=== PATIENT | female | born 1975 | race Hispanic/Latino ===

== ENCOUNTER 2019-11-24 22:53 | Emergency (ER) | payer BC ==
--- NOTE | 2019-11-24 23:43 | EDPHYS ---
Physician Documentation [facility] Name: Venice Bond Age: 44 yrs Sex: Female : 1975 Arrival Date: 11/24/2019 Time: 22:58 Bed 17 Private MD: ED Physician Babatunde Mott HPI: 11/23 23:18 This 44 yrs old Female presents to ER via Ambulatory with complaints of Sore pm1 Throat. 23:18 The patient presents with sore throat. The patient describes throat pain as raw, pm1 scratchy. Onset: The symptoms/episode began/occurred yesterday. Severity of symptoms: in the emergency department the symptoms are unchanged. Modifying factors: The symptoms are alleviated by nothing, the symptoms are aggravated by nothing. Associated signs and symptoms: Pertinent positives: increased thirst. Sensation of "decreased circulation to both feet". The patient has not experienced similar symptoms in the past. The patient has not recently seen a physician. Patient is concerned that she has symptoms of covid and would like to be tested. Historical: - Allergies: 23:17 No Known Allergies; sg - Home Meds: 23:17 None [Active]; sg - PMHx: 23:17 None; sg - PSHx: 23:17 None; sg - Immunization history:: Adult Immunizations up to date. - Social history:: Smoking status: Patient denies any tobacco usage or history of. ROS: 23:18 Constitutional: Negative for fever, chills, and weight loss, Eyes: Negative for injury, pm1 pain, redness, and discharge. 23:18 Neck: Negative for injury, pain, and swelling, Cardiovascular: Negative for chest pain, palpitations, and edema, Respiratory: Negative for shortness of breath, cough, wheezing, and pleuritic chest pain, Abdomen/GI: Negative for abdominal pain, nausea, vomiting, diarrhea, and constipation, Back: Negative for injury and pain, MS/Extremity: Negative for injury and deformity, Skin: Negative for injury, rash, and discoloration. 23:18 ENT: Positive for sore throat, Negative for drainage from ear(s), ear pain, dental pain, difficulty swallowing, difficulty handling secretions, hoarseness. 23:18 Neuro: Positive for tingling to bilateral feet yesterday that resolved. Exam: 23:18 Constitutional: This is a well developed, well nourished patient who is awake, alert, pm1 and in no acute distress. Head/Face: Normocephalic, atraumatic. Chest/axilla: Normal chest wall appearance and motion. Nontender with no deformity. No lesions are appreciated. 23:18 ENT: Nares patent. No nasal discharge, no septal abnormalities noted. Tympanic membranes are normal and external auditory canals are clear. Oropharynx with no redness, swelling, or masses, exudates, or evidence of obstruction, uvula midline. Mucous membranes moist. Neck: Trachea midline, no thyromegaly or masses palpated, and no cervical lymphadenopathy. Supple, full range of motion without nuchal rigidity, or vertebral point tenderness. No Meningismus. Abdomen/GI: Soft, non-tender, with normal bowel sounds. No distension or tympany. No guarding or rebound. No evidence of tenderness throughout. Back: No spinal tenderness. No costovertebral tenderness. Full range of motion. Skin: Warm, dry with normal turgor. Normal color with no rashes, no lesions, and no evidence of cellulitis. MS/ Extremity: Pulses equal, no cyanosis. Neurovascular intact. Full, normal range of motion. 23:18 Cardiovascular: Exam negative for acute changes, Rate: normal, Rhythm: regular, Pulses: no pulse deficits are appreciated. 23:18 Respiratory: Exam negative for acute changes, respiratory distress, shortness of breath. 23:18 Neuro: Orientation: is normal, Mentation: is normal, Memory: is normal, Motor: is normal, moves all fours, Sensation: is normal, no obvious gross deficits, Gait: is steady, at a normal pace, without difficulty. Vital Signs: 23:14 BP 142 / 70; Pulse 88; Resp 18; Temp 98.3; Pulse Ox 100% ; Weight 147.42 kg; Height 5 sg ft. 6 in. (167.64 cm); 23:14 Body Mass Index 52.46 (147.42 kg, 167.64 cm) MDM: 23:13 Patient medically screened. [facility] 23:23 Data reviewed: vital signs. Data interpreted: Pulse oximetry: on room air is 100 %. pm1 Interpretation: normal. 23:41 Refusal of service: The patient/guardian displays adequate decision making capability pm1 and despite a detailed discussion of alternatives, benefits, risks, and consequences refuses: all lab tests, Patient wants to follow up with her PCP instead of getting labs in the ER. Administered Medications: No medications were administered Disposition: 11/24 07:39 Co-signature as Attending Physician, Babatunde Mott MD I agree with the assessment and giovanni plan of care. Disposition: 11/24/19 23:43 Discharged to Home. Impression: Acute pharyngitis. - Condition is Stable. - Discharge Instructions: Pharyngitis. - Medication Reconciliation Form, Thank You Letter, Antibiotic Education, Prescription Opioid Use form. - Follow up: Emergency Department; When: As needed; Reason: Worsening of condition. Follow up: Private Physician; When: 2 - 3 days; Reason: Recheck today's complaints, Continuance of care, Re-evaluation by your physician. - Problem is new. - Symptoms have improved. Signatures: Dispatcher [employer] EDMS Kaushal Escalante, RN RN Babatunde Darby MD MD cha Marinas, Patrick, MANAGER BACKGROUND MANAGER BACKGROUND pm1 Sujata Tan RN RN ch2 Corrections: (The following items were deleted from the chart) 11/23 23:53 23:43 11/24/2019 23:43 Discharged to Home. Impression: Acute pharyngitis. Condition is ch2 Stable. Forms are Medication Reconciliation Form, Thank You Letter, Antibiotic Education, Prescription Opioid Use. Follow up: Emergency Department; When: As needed; Reason: Worsening of condition. Follow up: Private Physician; When: 2 - 3 days; Reason: Recheck today's complaints, Continuance of care, Re-evaluation by your physician. Problem is new. Symptoms have improved. pm1
--- NOTE | 2019-11-24 23:43 | ER ---
Nurse's Notes [facility] Name: Venice Bond Age: 44 yrs Sex: Female : 1975 Arrival Date: 11/24/2019 Time: 22:58 Bed 17 Private MD: Diagnosis: Acute pharyngitis Presentation: 11/23 23:14 Chief complaint: Patient states: I have had anxiety over the last couple of days, have sg not been feeling well, sore throat that began yesterday, states having sensation as if my legs are not getting enough circulation to them, reports increased thirst, denies any changes in taste/smell, denies N/V/D/Fever, denies bodyaches. Coronavirus screen: Proceed with normal triage. Patient denies a cough. Patient denies shortness of breath or difficulty breathing. Patient denies measured and/or subjective temperature greater than 100.4F prior to today's visit. Patient denies travel on a cruise ship or to a country the [facility] currently lists as an affected area. Patient denies contact with known and/or suspected case of COVID-19. Ebola Screen: Patient negative for fever greater than or equal to 101.5 degrees Fahrenheit, and additional compatible Ebola Virus Disease symptoms Patient denies exposure to infectious person. Patient denies travel to an Ebola-affected area in the 21 days before illness onset. No symptoms or risks identified at this time. Initial Sepsis Screen: Does the patient meet any 2 criteria? No. Patient's initial sepsis screen is negative. Does the patient have a suspected source of infection? No. Patient's initial sepsis screen is negative. Risk Assessment: Do you want to hurt yourself or someone else? Patient reports no desire to harm self or others. Onset of symptoms was November 24, 2019. Care prior to arrival: None. Transition of care: patient was not received from another setting of care. 23:14 Method Of Arrival: Ambulatory sg 23:14 Acuity: LUIS 3 sg Historical: - Allergies: 23:17 No Known Allergies; sg - Home Meds: 23:17 None [Active]; sg - PMHx: 23:17 None; sg - PSHx: 23:17 None; sg - Immunization history:: Adult Immunizations up to date. - Social history:: Smoking status: Patient denies any tobacco usage or history of. Assessment: 23:40 General: Appears in no apparent distress. comfortable, obese, well groomed, well ch2 developed, well nourished, Behavior is calm, cooperative, appropriate for age. 23:51 Reassessment: Patient appears in no apparent distress at this time. No changes from [facility] previously documented assessment. Patient and/or family updated on plan of care and expected duration. Pain level reassessed. Patient is alert, oriented x 3, equal unlabored respirations, skin warm/dry/pink. patient now any further medical work up, explained reasoning for ordered labs/tests, patient verbalizes understanding, wishes to go home. Vital Signs: 23:14 BP 142 / 70; Pulse 88; Resp 18; Temp 98.3; Pulse Ox 100% ; Weight 147.42 kg; Height 5 sg ft. 6 in. (167.64 cm); 23:14 Body Mass Index 52.46 (147.42 kg, 167.64 cm) ED Course: 22:58 Patient arrived in ED. ag3 23:11 Aditya Packer NP is PHCP. pm1 23:11 Babatunde Mott MD is Attending Physician. pm1 23:16 Triage completed. sg 23:17 Arm band placed on. sg Administered Medications: No medications were administered Outcome: 23:43 Discharge ordered by MD. pm1 23:53 Discharged to home ambulatory. ch2 23:53 Condition: stable 23:53 Discharge instructions given to patient, Instructed on discharge instructions, follow up and referral plans. 23:53 Patient left the ED. [facility] Signatures: Kaushal Escalante RN RN Aditya Packer NP DIESEL PILE DRIVER OPERATOR pm1 Sujata Tan RN RN [facility] Terri Bryant ag3 Corrections: (The following items were deleted from the chart) 23:17 23:14 Acuity: LUIS 3 sg sg 23:19 23:14 Acuity: LUIS 4 sg sg 23:51 23:50 General: Appears in no apparent distress. comfortable, obese, well groomed, well ch2 developed, well nourished, Behavior is calm, cooperative, appropriate for age, [facility] 23:51 23:50 Reassessment: [place] [id number]
[2019-11-24 23:58] VITALS: BP 142/70; TEMP 98.3; O2SAT 100
== END 2019-11-24 23:53 | disposition home or self-care (01) ==
LOC: ER 22:53
DX: J02.9 Acute pharyngitis, unspecified (principal)
CPT/HCPCS: 99281

== ENCOUNTER 2024-01-25 02:31 | Emergency (ER) | payer OTHER ==
[2024-01-25] MEDS ORDERED: METHYLPREDNISOLONE 125 MG INJ ONE (03:00)
[2024-01-25] MEDS ORDERED: predniSONE 20 MG TAB ONE (03:01)
[2024-01-25] MEDS ORDERED: FAMOTIDINE 20 MG/2 ML VIAL IV ONE (03:01)
[2024-01-25] MEDS ORDERED: DIPHENHYDRAMINE 50 MG/ML VIAL ONE (03:01)
[2024-01-25] MEDS ORDERED: NA CHLORIDE 0.9% 1,000 ML ONE (03:01)
[2024-01-25 03:44] LABS: Absolute Eosinophils 0.2 K/uL (0-0.5); Absolute Lymphocytes (CBC) 2.9 K/uL (0.7-4.9); Absolute Monocytes 0.6 K/uL (0.1-1.3); Basophils % 0.4 % (0-1.3); Eosinophils % 2.5 % (0-4.4); Hematocrit 36.8 % (36.0-45.0); Hemoglobin 12.1 g/dL (12.0-15.0); Lymphocytes % 37.7 % (15.3-44.8); MCH 27.9 pg (27.0-35.0); MCHC 32.8 g/dL (32.0-36.0); MCV 84.8 fL (80-100); MPV 8.4 fL (7.6-11.3); Monocytes % 7.8 % (3.3-12.3); Neutrophils % 51.6 % (41.7-73.7); Nucleated Red Blood Cells % 0.1 % (0-0); Platelets 343 thou/uL (152-406); RBC Red Blood Cell Count 4.34 M/uL (3.86-4.86); Red Cell Distribution Width 15.5 % (12.1-15.2)
[2024-01-25 03:53] LABS: Albumin 3.6 g/dL (3.4-5.0); Albumin/Globulin Ratio 0.9 (1.1-1.8); Anion Gap 8.5 mEq/L (5.0-15.0); Bilirubin Total 0.5 mg/dL (0.2-1.0); Potassium 3.5 mEq/L (3.5-5.1); Protein, Total 7.6 g/dL (6.4-8.2)
--- NOTE | 2024-01-25 04:03 | EDPHYS ---
Physician Documentation [facility] Name: Venice Bond Age: 48 yrs Sex: Female : 1975 Arrival Date: 01/25/2024 Time: 02:31 Bed 7 Private MD: ELIAZAR Physician Babatunde Mott HPI: 01/24 02:58 This 48 yrs old Female presents to ER via Unassigned with complaints of giovanni Allergic Reaction, Rash. 02:58 The patient presents with rash, redness of skin. Onset: The symptoms/episode giovanni began/occurred 2 day(s) ago. Associated signs and symptoms: Pertinent positives: hives. Possible causes: The patient has no known obvious cause for the symptoms. At home the patient or guardian has treated the symptoms with Benadryl. Severity of symptoms: At their worst the symptoms were mild in the emergency department the symptoms are unchanged. The patient has not experienced similar symptoms in the past. 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 - Infectious Disease History:: Denies. - Family history:: not pertinent. - Social history:: Smoking status: Patient denies any tobacco usage or history of. ROS: 02:58 Constitutional: Negative for fever, chills, and weight loss, Eyes: Negative for injury, giovanni pain, redness, and discharge, ENT: Negative for injury, pain, and discharge, Neck: Negative for injury, pain, and swelling, Cardiovascular: Negative for chest pain, palpitations, and edema, Respiratory: Negative for shortness of breath, cough, wheezing, and pleuritic chest pain, Abdomen/GI: Negative for abdominal pain, nausea, vomiting, diarrhea, and constipation, Back: Negative for injury and pain, : Negative for injury, bleeding, discharge, and swelling, MS/Extremity: Negative for injury and deformity, Skin: Negative for injury, rash, and discoloration, Neuro: Negative for headache, weakness, numbness, tingling, and seizure, Psych: Negative for depression, anxiety, suicide ideation, homicidal ideation, and hallucinations, Endocrine: Negative for neck swelling, polydipsia, polyuria, polyphagia, and marked weight changes, Hematologic/Lymphatic: Negative for swollen nodes, abnormal bleeding, and unusual bruising, 02:58 Allergy/Immunology: Positive for allergies, Exam: 02:58 Constitutional: This is a well developed, well nourished patient who is awake, alert, giovanni and in no acute distress. Head/Face: Normocephalic, atraumatic. Eyes: Pupils equal round and reactive to light, extra-ocular motions intact. Lids and lashes normal. Conjunctiva and sclera are non-icteric and not injected. Cornea within normal limits. Periorbital areas with no swelling, redness, or edema. ENT: Nares patent. No nasal discharge, no septal abnormalities noted. Tympanic membranes are normal and external auditory canals are clear. Oropharynx with no redness, swelling, or masses, exudates, or evidence of obstruction, uvula midline. Mucous membranes moist. Neck: Trachea midline, no thyromegaly or masses palpated, and no cervical lymphadenopathy. Supple, full range of motion without nuchal rigidity, or vertebral point tenderness. No Meningismus. Chest/axilla: Normal chest wall appearance and motion. Nontender with no deformity. No lesions are appreciated. Cardiovascular: Regular rate and rhythm with a normal S1 and S2. No gallops, murmurs, or rubs. Normal PMI, no JVD. No pulse deficits. Respiratory: Lungs have equal breath sounds bilaterally, clear to auscultation and percussion. No rales, rhonchi or wheezes noted. No increased work of breathing, no retractions or nasal flaring. Abdomen/GI: Soft, non-tender, with normal bowel sounds. No distension or tympany. No guarding or rebound. No evidence of tenderness throughout. Back: No spinal tenderness. No costovertebral tenderness. Full range of motion. MS/ Extremity: Pulses equal, no cyanosis. Neurovascular intact. Full, normal range of motion. Neuro: Awake and alert, GCS 15, oriented to person, place, time, and situation. Cranial nerves II-XII grossly intact. Motor strength 5/5 in all extremities. Sensory grossly intact. Cerebellar exam normal. Normal gait. Psych: Awake, alert, with orientation to person, place and time. Behavior, mood, and affect are within normal limits. 02:58 Skin: Appearance: Color: normal in color, Temperature: normal temperature, Moisture: normal moisture, abscess, not appreciated, cellulitis, is not appreciated, induration, is not appreciated, injury, is not appreciated, Vital Signs: 03:22 BP 124 / 74; Pulse 80; Resp 18; Temp 98.7; Pulse Ox 100% ; Weight 154.22 kg; Height 5 vc1 ft. 6 in. ; Pain 0/10; 04:00 BP 132 / 67; Pulse 75; Resp 17 S; Temp 98.1(T); Pulse Ox 100% on R/A; ha1 03:22 Body Mass Index 54.88 (154.22 kg, 167.64 cm) vc1 03:22 Pain Scale: Adult vc1 MDM: 02:37 Patient medically screened. [facility] 03:02 Differential diagnosis: anaphylaxis, angioedema, bronchospasm. Data reviewed: vital giovanni signs, nurses notes, lab test result(s). Consideration of Admission/Observation Escalation of care including admission/observation considered. I considered the following discharge prescriptions or medication management in the emergency department Medications were administered in the Emergency Department. See MAR. Test considered but Not performed: X-ray: NO CXR, NO ST XRAY. Historians other than the Patient: PT WELL INFORMED. 01/24 02:38 Order name: CBC with Diff giovanni 01/24 02:38 Order name: Comprehensive Metabolic Panel; Complete Time: 03:59 [facility] Administered Medications: 03:09 Drug: NS 0.9% IV 1000 ml IV at 1 bolus Per protocol; 1000 mL bolus Route: IV; Rate: 1 cp4 bolus; Site: right antecubital; 04:00 Follow up: Response: No adverse reaction; IV Status: Completed infusion; IV Intake: ha1 1000ml 03:09 Not Given (Patient Refused): [id number] mg IVP once cp4 03:09 Drug: Famotidine IVP 40 mg IVP once; dilute with 10 mL 0.9% NaCl; give over 2 minutes cp4 Route: IVP; Site: right antecubital; 03:40 Follow up: Response: No adverse reaction; Marked relief of symptoms ha1 03:09 Drug: MethylPrednisoLONE IVP 125 mg IVP once Route: IVP; Site: right antecubital; cp4 03:40 Follow up: Response: No adverse reaction; Marked relief of symptoms ha1 03:09 Drug: predniSONE PO 60 mg PO once Route: PO; cp4 03:45 Follow up: Response: No adverse reaction; Marked relief of symptoms ha1 Disposition Summary: 01/25/24 04:02 Discharge Ordered Notes: Location: Home [facility] Problem: new giovanni Symptoms: have improved giovanni Condition: Stable giovanni Diagnosis - Urticaria, unspecified giovanni Followup: giovanni - With: Private Physician - When: 2 - 3 days - Reason: Recheck today's complaints, Continuance of care, Re-evaluation by your physician Discharge Instructions: - Discharge Summary Sheet [facility] - Hives giovanni - Rash, Adult giovanni - Rash, Adult, [id number] giovanni - Hives, [id number] [facility] Forms: - Medication Reconciliation Form [facility] - Antibiotic Education [facility] - Prescription Opioid Use [facility] - Patient Portal Instructions [facility] - Leadership Thank You Letter [facility] Prescriptions: - EpiPen 2-Giancarlo - inject 1 pen SUBCUTANEOUS route as directed; 2 pen; Refills: 0, Product [facility] Selection Permitted - Benadryl 25 mg Oral capsule - take 2 capsule ORAL route every 6 hours As needed; 56 tablet; Refills: 0, [facility] Product Selection Permitted - Pepcid 20 mg Oral tablet - take 1 tablet ORAL route every 12 hours for 21 days; 42 tablet; Refills: 0, [facility] Product Selection Permitted - Prednisone 20 mg Oral Tablet - take 2 tablets ORAL route once daily for 5 days; 10 tablet; Refills: 0, Product [facility] Selection Permitted Signatures: Dispatcher [employer] Babatunde Santana MD MD cha Calcote, Vanessa, RN RN vc1 Jaz Walsh [facility] Chata Murrieta RN ha1 Corrections: (The following items were deleted from the chart) 03:34 03:27 PSHx: None; vc1 vc1
--- NOTE | 2024-01-25 04:03 | ER ---
Nurse's Notes [facility] Name: Venice Bond Age: 48 yrs Sex: Female : 1975 Arrival Date: 01/25/2024 Time: 02:31 Bed 7 Private MD: Diagnosis: Urticaria, unspecified Presentation: 01/24 03:22 Chief complaint: Patient states: ate fish over the weekend and noticed redness and vc1 itchy to both legs and arms. Has been taking benadryl for the last 3 days. Coronavirus screen: Vaccine status: Patient reports receiving the 2nd dose of the covid vaccine. Client denies travel out of the [place] in the last 14 days. At this time, the client does not indicate any symptoms associated with coronavirus-19. Ebola Screen: Patient negative for fever greater than or equal to 101.5 degrees Fahrenheit, and additional compatible Ebola Virus Disease symptoms Patient denies exposure to infectious person. Patient denies travel to an Ebola-affected area in the 21 days before illness onset. No symptoms or risks identified at this time. Onset: The symptoms/episode began/occurred acutely. Anaphylaxis evaluation, the patient reports or I have noted the following symptoms which indicate a significant risk of anaphylaxis: no signs or symptoms of anaphylaxis were noted. Initial Sepsis Screen: Does the patient meet any 2 criteria? No. Patient's initial sepsis screen is negative. Does the patient have a suspected source of infection? No. Patient's initial sepsis screen is negative. Risk Assessment: Do you want to hurt yourself or someone else? Patient reports no desire to harm self or others. Onset of symptoms was January 22, 2024. Care prior to arrival: None. Activity prior to arrival: None. Mechanism of Injury: No Mechanism of Injury. Transition of care: patient was not received from another setting of care. 03:22 Method Of Arrival: Ambulatory vc1 03:22 Acuity: LUIS 3 vc1 CLERK: 03:34 LMP N/A - Hysterectomy, Not vc1 Historical: - Allergies: 03:27 No Known Allergies; vc1 - Home Meds: 03:27 Lisinopril Oral [Active]; vc1 - PMHx: 03:27 Hypertensive disorder; vc1 - PSHx: 03:34 Total abdominal hysterectomy; vc1 - Immunization history:: Adult Immunizations up to date. - Infectious Disease History:: Denies. - Family history:: not pertinent. - Social history:: Smoking status: Patient denies any tobacco usage or history of. Screenin:06 [facility] ED Fall Risk Assessment (Adult) History of falling in the last 3 months, cp4 including since admission No falls in past 3 months (0 pts) Confusion or Disorientation No (0 pts) Intoxicated or Sedated No (0 pts) Impaired Gait No (0 pts) Mobility Assist Device Used No (0 pt) Altered Elimination No (0 pt) Score/Fall Risk Level 0 - 2 = Low Risk Oriented to surroundings, Maintained a safe environment, Assessed \T\ reinforced patient's understanding of fall precautions, Hourly rounding (assess needs \T\ fall precautionary measures) done. Abuse screen: Denies threats or abuse. Nutritional screening: No deficits noted. Tuberculosis screening: No symptoms or risk factors identified. Assessment: 03:06 General: Appears in no apparent distress. comfortable. General: Behavior is calm, cp4 cooperative, appropriate for age. Pain: Denies pain. Neuro: Level of Consciousness is awake, alert, obeys commands, Oriented to person, place, time, situation. Cardiovascular: No deficits noted. Respiratory: Airway is patent Respiratory effort is even, unlabored, Breath sounds are clear bilaterally. GI: No signs and/or symptoms were reported involving the gastrointestinal system. : No signs and/or symptoms were reported regarding the genitourinary system. EENT: No signs and/or symptoms were reported regarding the EENT system. Derm: Reports itching. Musculoskeletal: No signs and/or symptoms reported regarding the musculoskeletal system. 04:00 Reassessment: Patient and/or family updated on plan of care and expected duration. Pain ha1 level reassessed. Patient is alert, oriented x 3, equal unlabored respirations, skin warm/dry/pink. Patient denies pain at this time. Patient states feeling better. Patient states symptoms have improved. Vital Signs: 03:22 BP 124 / 74; Pulse 80; Resp 18; Temp 98.7; Pulse Ox 100% ; Weight 154.22 kg; Height 5 vc1 ft. 6 in. ; Pain 0/10; 04:00 BP 132 / 67; Pulse 75; Resp 17 S; Temp 98.1(T); Pulse Ox 100% on R/A; ha1 03:22 Body Mass Index 54.88 (154.22 kg, 167.64 cm) vc1 03:22 Pain Scale: Adult vc1 ED Course: 02:35 Patient arrived in ED. gm2 02:37 Babatunde Mott MD is Attending Physician. giovanni 02:45 Arm band placed on right wrist. ha1 03:06 Jaz Walsh is Primary Nurse. cp4 03:06 Bed in low position. Call light in reach. Side rails up X 1. cp4 03:06 No provider procedures requiring assistance completed. Initial lab(s) drawn, by nj, cp4 sent to lab. Inserted saline lock: 22 gauge in right antecubital area, using aseptic technique. Blood collected. Flushed with 10 mL NS. 03:27 Triage completed. vc1 04:23 Provided Education on: medication administration . ha1 04:23 IV discontinued, intact, bleeding controlled, No redness/swelling at site. Pressure ha1 dressing applied. Administered Medications: 03:09 Drug: NS 0.9% IV 1000 ml IV at 1 bolus Per protocol; 1000 mL bolus Route: IV; Rate: 1 cp4 bolus; Site: right antecubital; 04:00 Follow up: Response: No adverse reaction; IV Status: Completed infusion; IV Intake: ha1 1000ml 03:09 Not Given (Patient Refused): [id number] mg IVP once cp4 03:09 Drug: Famotidine IVP 40 mg IVP once; dilute with 10 mL 0.9% NaCl; give over 2 minutes cp4 Route: IVP; Site: right antecubital; 03:40 Follow up: Response: No adverse reaction; Marked relief of symptoms ha1 03:09 Drug: MethylPrednisoLONE IVP 125 mg IVP once Route: IVP; Site: right antecubital; cp4 03:40 Follow up: Response: No adverse reaction; Marked relief of symptoms ha1 03:09 Drug: predniSONE PO 60 mg PO once Route: PO; cp4 03:45 Follow up: Response: No adverse reaction; Marked relief of symptoms ha1 Medication: 03:06 VIS not applicable for this client. cp4 Intake: 04:00 IV: 1000ml; Total: 1000ml. ha1 Outcome: 04:02 Discharge ordered by . giovanni 04:22 Discharged to home ambulatory, with family, ha1 04:22 Condition: stable 04:22 Discharge instructions given to patient, family, Instructed on discharge instructions, follow up and referral plans. medication usage, Demonstrated understanding of instructions, follow-up care, medications, Prescriptions given X 4, 04:23 Patient left the ED. ha1 Signatures: Babatunde Mott MD MD cha Calcote, Vanessa RN RN vc1 Chata Murrieta RN RN ha1 Jaz Walsh 4 Latoya Man 2 Corrections: (The following items were deleted from the chart) 03:34 03:27 PSHx: None; vc1 vc1
[2024-01-25 04:38] VITALS: O2SAT 100
[2024-01-25 04:40] VITALS: BP 132/67; TEMP 98.1
== END 2024-01-25 04:23 | disposition home or self-care (01) ==
LOC: ER 02:31
DX: L50.9 Urticaria, unspecified (principal); I10 Essential (primary) hypertension
CPT/HCPCS: 96361; 85025; 36415; 80053; 96375; 96374; 99284; J7512; J1200; J2919; J7030

== ENCOUNTER 2024-10-16 06:51 | Day surgery (SDC) | payer OTHER ==
--- NOTE | 2024-10-14 11:56 | EKG ---
Test Date: 2024-10-14 Test Time: 09:06:17 Medical Library Assistant: RITIKA MEASUREMENT RESULTS: Intervals: Rate: 66 ND: 148 QRSD: 98 QT: 410 QTc: 429 [place]: P: 45 ND: 148 QRS: 20 T: 20 INTERPRETIVE STATEMENTS: Normal sinus rhythm Normal ECG No previous ECG available for comparison Electronically Signed On 10-14-24 11:55:20 CDT by Brando Hernandez
[2024-10-16] MEDS: Ringers Lactate 1,000 ML IV ONE (07:25)
[2024-10-16] MEDS ORDERED: propofoL 200 MG/20 ML VIAL IV ONE ×2 (08:28→08:29)
[2024-10-16] MEDS ORDERED: LIDOCAINE 1% MPF 5 ML VIAL ONE (08:29)
[2024-10-16 11:07] VITALS: BP 132/73; TEMP 97.6; O2SAT 97
== END 2024-10-16 09:44 | disposition home or self-care (01) ==
LOC: OR 06:51
PROVIDERS: ATTEND Internal Medicine Gastroenterology
PROC: 0DJD8ZZ Inspection of Lower Intestinal Tract, Via Natural or Artificial Opening Endoscopic (ICD-10-PCS; principal; 2024-10-16 08:15)
DX: Z12.11 Encounter for screening for malignant neoplasm of colon (principal); K64.8 Other hemorrhoids; I10 Essential (primary) hypertension; Z85.42 Personal history of malignant neoplasm of other parts of uterus
CPT/HCPCS: 93005; 80048; 36415; 45378; J2704 ×2; J2003; J7120